=== PATIENT | female | born 1955 | race Caucasian/White ===

== ENCOUNTER 2017-12-07 00:57 | Outpatient (CLI) | payer OTHER, SELFPAY ==
[2017-12-07 08:46] LABS: Glucose 116 mg/dL (70-100)
== END 2017-12-07 01:17 ==
PROVIDERS: PCP Student in an Organized Health Care Education/Training Program; Visit Provider Student in an Organized Health Care Education/Training Program
DX: R73.09 Other abnormal glucose (principal); R79.89 Other specified abnormal findings of blood chemistry
CPT/HCPCS: 36415; 82947; 84443

== ENCOUNTER 2018-07-19 02:04 | Outpatient (CLI) | payer OTHER, SELFPAY ==
[2018-07-19 07:53] LABS: HCT 44.7 % (36.0-46.0); HGB 15.1 g/dL (12.0-15.5); Mean Corp. HGB Concentration 33.8 g/dL (32.0-36.0); Mean Corpuscular Hemoglobin 29.5 pg (27.0-33.0); Mean Corpuscular Volume 87.5 fL (80-95); Mean Platelet Volume 10.1 fL (8.0-11.0); Platelet Count 319 x1000/uL (130-400); RBC 5.11 m/cumm (4.00-5.20); RBC Distribution Width 13.2 % (11.7-14.6)
[2018-07-19 08:38] LABS: Anion Gap 7.5 mmol/L (3-11); BUN 17 mg/dL (7-18); CO2 29.5 mmol/L (21.0-32.0); CREATININE 0.85 mg/dL (0.55-1.02); Calcium 9.3 mg/dL (8.5-10.1); Chloride 105 mmol/L (98-107); Cholesterol 186 mg/dL (50-200); Glucose 115 mg/dL (70-100); HDL Cholesterol 48 mg/dL (40-60); LDL CHOLESTEROL 113 mg/dL (<100); Potassium 3.9 mmol/L (3.5-5.1); Sodium 142 mmol/L (136-145); TSH (W/Ref FT4) 2.93 uIU/mL (0.358-3.74); Triglyceride 154 mg/dL (30-150)
== END 2018-07-19 02:24 ==
PROVIDERS: PCP Student in an Organized Health Care Education/Training Program; Visit Provider Student in an Organized Health Care Education/Training Program
DX: I10 Essential (primary) hypertension (principal); R73.09 Other abnormal glucose; Z13.220 Encounter for screening for lipoid disorders; E55.9 Vitamin D deficiency, unspecified; Z86.2 Personal history of diseases of the blood and blood-forming organs and certain disorders involving the immune mechanism; E03.9 Hypothyroidism, unspecified
CPT/HCPCS: 36415; 80048; 80061; 82306; 83721; 85027; 84443

== ENCOUNTER 2019-04-01 01:34 | Outpatient (CLI) | payer OTHER, SELFPAY ==
--- NOTE | 2019-04-01 07:28 | DI.MAMMO_ITS ---
EXAM: MG MAMMO SCREENING CLINICAL HISTORY: screening,z12.39. TECHNIQUE: Bilateral full field digital CC and MLO mammographic images were obtained with 3D tomosyn thesis and utilizing computer aided detection (CAD). COMPARISON: Available for comparison. FINDINGS: Masses/Architectural Distortion: None seen. Microcalcifications: No suspicious pleomorphic-type are seen. Skin Thickening/Nipple Retraction: None. IMPRESSION: 1. No significant interval change with no specific features of malignancy noted. 2. Unless there is more urgent need, screening mammography is recommended, as per [employer] guidelines. ACR BI-RAD Category- 1 Negative Breast Density - Category B - Scattered areas of fibroglandular density A negative radiographic report should not delay biopsy if a dominant or clinically suspicious mass is present. Up to ten percent of cancers are not identified on mammography. A negative report may reinforce clinical impression. Adenosis and dense breasts may obscure an underlying neoplasm. False positive reports average 6 to 10%. Patient will receive a letter notifying them of these results.
== END 2019-04-01 01:54 ==
PROVIDERS: PCP Student in an Organized Health Care Education/Training Program; Visit Provider Student in an Organized Health Care Education/Training Program
DX: Z12.31 Encounter for screening mammogram for malignant neoplasm of breast (principal)
CPT/HCPCS: 77063; 77067

== ENCOUNTER 2020-03-25 02:53 | Outpatient (CLI) | payer BC, SELFPAY ==
[2020-03-25 09:19] LABS: Anion Gap 8.6 mmol/L (3-11); BUN 17 mg/dL (7-18); CO2 27.4 mmol/L (21.0-32.0); CREATININE 0.85 mg/dL (0.55-1.02); Calculated LDL 135 mg/dL (<100); Chloride 105 mmol/L (98-107); Cholesterol 216 mg/dL (<200); Glucose 116 mg/dL (74-106); HDL Cholesterol 51 mg/dL (40-60); Potassium 4.2 mmol/L (3.5-5.1); Sodium 141 mmol/L (136-145); TSH (W/Ref FT4) 2.52 uIU/mL (0.36-3.74); Triglyceride 151 mg/dL (<150)
== END 2020-03-25 03:13 ==
PROVIDERS: PCP Student in an Organized Health Care Education/Training Program; Visit Provider Student in an Organized Health Care Education/Training Program
DX: I10 Essential (primary) hypertension (principal); E03.9 Hypothyroidism, unspecified; E88.81 Metabolic syndrome and other insulin resistance; R73.09 Other abnormal glucose; Z13.220 Encounter for screening for lipoid disorders
CPT/HCPCS: 36415; 80048; 80061; 84443

== ENCOUNTER 2021-08-25 02:13 | Outpatient (CLI) | payer BC, SELFPAY ==
[2021-08-25 09:32] LABS: Anion Gap 9.4 mmol/L (3-11); BUN 16 mg/dL (7-18); CO2 26.6 mmol/L (21.0-32.0); CREATININE 0.9 mg/dL (0.55-1.02); Calcium 8.9 mg/dL (8.5-10.1); Chloride 104 mmol/L (98-107); Glucose 112 mg/dL (74-106); Potassium 3.6 mmol/L (3.5-5.1); Sodium 140 mmol/L (136-145); TSH (W/Ref FT4) 3.11 uIU/mL (0.36-3.74)
== END 2021-08-25 02:14 | disposition home or self-care (01) ==
LOC: LBO 02:14
PROVIDERS: PCP Student in an Organized Health Care Education/Training Program; Visit Provider Student in an Organized Health Care Education/Training Program
DX: E88.81 Metabolic syndrome and other insulin resistance (principal); I10 Essential (primary) hypertension; R73.09 Other abnormal glucose; E03.9 Hypothyroidism, unspecified
CPT/HCPCS: 36415; 80048; 84443

== ENCOUNTER → 2021-10-24 03:03 | Outpatient (CLI) | payer BC, SELFPAY ==
--- NOTE | 2021-10-24 07:15 | DI.MAMMO_ITS ---
Exam(s) MAMMO SCREENING EXAM: MAMMO SCREENING CLINICAL HISTORY: screening,Z12.39. TECHNIQUE: Bilateral full field digital CC and MLO mammographic images were obtained with 3D tomosyn thesis and utilizing computer aided detection (CAD). COMPARISON: Prior mammograms were reviewed, the most recent being March 2019. FINDINGS: Asymmetric density medially in left breast on CC views unchanged from prior studies. Asymmetric density lateral of center in the left breast on the CC view is also unchanged. No new spiculated masses in either breast. In the right breast there are increasing secretory-type microcalcifications, more so than 2019 There is no significant architectural distortion nor skin thickening-retraction. IMPRESSION: No radiographic evidence of malignancy in left breast. Increasing presently benign-appearing calcifications in the right breast. Recommend follow-up right breast mammogram in 6 months. BI-RADS Category 3 - 6 month - Probably Benign Finding: Recommend follow-up mammography in 6 months Breast Density - Category B - Scattered areas of fibroglandular density Breast density Category C or D implies that the patient has dense breast tissue. Dense breast tissue can make it harder to find cancer on a mammogram. Dense breast tissue is also associated with an incr eased risk of breast cancer. This information about the result of the mammogram report was provided to the patient to raise their awareness. Use this report when you speak with the patient about their risks for breast cancer, which includes their family history. At that time, you may recommend additional screening tests (Ultrasoun d or MRI) as these tests may add significant information. A negative radiographic report should not delay biopsy if a dominant or clinically suspicious mass is present. Up to ten percent of cancers are not identified on mammography. A negative report may reinforce clinical impression. Adenosis and dense breasts may obscure an underlying neoplasm. False positive reports average 6 to 10%. Patient will receive a letter notifying them of these results.
== END ==
PROVIDERS: PCP Student in an Organized Health Care Education/Training Program; Visit Provider Student in an Organized Health Care Education/Training Program
DX: Z12.31 Encounter for screening mammogram for malignant neoplasm of breast (principal); N60.82 Other benign mammary dysplasias of left breast; R92.1 Mammographic calcification found on diagnostic imaging of breast
CPT/HCPCS: 77063; 77067

== ENCOUNTER 2023-05-04 07:14 | Day surgery (SDC) | payer BC, SELFPAY ==
--- NOTE | 2023-05-03 14:36 | PDOC.DSDIS_ITS ---
Date of service: 05/04/23 Time of Service: 08:59 Discharge Plan Disposition Patient Disposition: Home Condition: Good Discharge Details Reason For Visit: colon scope Attending Provider: Kirsten Nunez Primary Care Provider: Betty Diana Home Meds and New Rx's Prescriptions: Continued magnesium 250 mg tablet 500 mg PO DAILY aspirin [Adult Aspirin Regimen] 81 mg tablet,delayed release (DR/EC) 81 mg PO DAILY PRN Patient Comments: 04/04/22-reports she sometimes takes this cholecalciferol (vitamin D3) [Vitamin D3] 1,000 UNIT capsule 1,000 unit PO DAILY Qty: 100 6RF Rx Instructions: Vitamin D supplement levothyroxine 50 mcg capsule 50 mcg PO DAILY Qty: 90 3RF irbesartan [Avapro] 300 mg tablet 300 mg PO DAILY Qty: 90 3RF Rx Instructions: to control BP <140/85 hydrochlorothiazide 12.5 mg tablet 12.5 mg PO DAILY Qty: 90 3RF Rx Instructions: to control Blood Pressure under 140/90 Discontinued bisacodyl [Dulcolax (bisacodyl)] 5 mg tablet,delayed release (DR/EC) 5 mg PO ONCE Qty: 4 0RF Rx Instructions: Take per colonoscopy instructions provided by ordering providers office polyethylene glycol 3350 17 gram/dose powder 17 g PO ONCE Qty: 238 0RF Rx Instructions: Take per colonoscopy instructions provided by ordering providers office Discharge Instructions Additional Instructions: DSU Colonoscopy Post- Op Instructions Instructions for Everyone who is given Anesthesia: For your safety, please do the following for the next twenty-four (24) hours: *Do Not operate a motor vehicle (car, truck, motorcycle, etc.) *Do Not drink alcoholic beverages or use any recreational drugs for the first 24 hours or while taking pain medications. The medications in your body may have a reaction that can be dangerous. *Do Not make any important decisions or sign any important papers. Findings: Extensive diverticula. Make sure you are moving your bowels on a regular basis and not straining to go to the bathroom. If you find you are having problems with constipation or straining, then it is recommended you start a fiber product such as Metamucil. ASA-resume in a.m. Follow up: Repeat in 10 years time 1. No lifting over 20 pounds or strenuous activity for the first 24 hours after your procedure. After 24 hours there are no restrictions on your activity but you may feel fatigued for a few days. 2. After you arrive home you may have a light meal and return to your normal diet as you can tolerate it without feeling sick to your stomach. 3. You may have a bloated, gaseous feeling in your belly (abdomen) after a colonoscopy. Passing gas and belching will help. Walking or lying down on your left side with your knees flexed may relieve the discomfort. Call the office at [phone] (Office) or [phone] (Hospital) right away if you notice any of the following: a.Vomiting of blood or ?coffee ground stools?. b.Rectal bleeding 1Tbsp, blood clots or continuous bleeding. c.Severe belly (abdominal) pain. d.A hard distended belly (abdomen) and an inability to pass gas. 4. Please don?t expect to have a normal BM (bowel movement) for 2-3 days after your procedure. 5. If there are questions regarding the findings of your procedure, please contact your doctor 6. If you are unable to contact your doctor with a problem, contact the hospital at [phone]. 7. Continue all your regular medications unless directed otherwise. I understand the above instructions and have no questions. Signature of Patient or Adult Escort Name of Responsible Adult Escort Signature of Nurse Date/Time Activity:: see above Diet:: see above Discharge Orders Discharge Orders: Discharge Order (Routine); Ordered 05/04/23 Ordered By: Kirsten Nunez DS: Diagnosis Discharge Diagnosis (1) Obesity (BMI 30-39.9): Status: Chronic (2) Essential hypertension: Status: Acute (3) Abnormal blood sugar: Status: Chronic (4) Metabolic syndrome X: Status: Acute (5) Hypothyroid: Status: Chronic (6) At risk for osteoporosis: Status: Acute (7) Sleep disturbance: Status: Chronic (8) Screening for malignant neoplasm of colon performed: Status: Acute Asessment and Plan: The patient is seen and examined after their colonoscopy.? The patient has been able to pass gas.? They are not having abdominal pain.? They have been able to tolerate liquids and a snack.? They do not have any nausea or vomiting.? They are not having any chest pain or shortness of breath.??? They are not having any rectal bleeding. Their vital signs have been stable-see nursing notes. We discussed findings during their colonoscopy, and any biopsies that were done/polyps that were removed. The patient will be sent a letter with any biopsy results, and when to repeat the colonoscopy.-see discharge instructions. Patient was given explicit instructions to follow-up regarding colonoscopy-refer to discharge instructions.? We reviewed resumption of medications. Patient verbalized understanding and discharged in stable and satisfactory condition- See nursing notes. (9) Diverticula of colon: Status: Acute
--- NOTE | 2023-05-03 14:39 | COLE_ITS ---
Date of service: 05/04/23 Time of Service: 08:56 Colonoscopy Report Date of procedure: 05/04/23 Pre-op diagnosis general: CRC screening Post-op diagnosis procedure note: other (Internal and external hemorrhoids. Diverticular disease.) Surgeon: Kirsten Nunez Anesthesia Type: General:No Airway Estimated blood loss (mL): 0 Pathology: none sent Complications: None Disposition: same day Prep: Miralax/Dulcolax Retraction Time: 8 Procedure Description: After informed consent was obtained the patient was taken to the procedure room and placed in a left decubitous position. Monitors were applied and a time out was done. The patients name, date of , procedure, allergies to medications and metal in their body was reviewed. The patient was then sedated. Once sedated and comfortable a rectal exam was done. External exam shows old external hemorrhoids and hemorrhoidal tags. It looks like she may have even had a perirectal abscess at 1 point. internal exam revealed a normal sphincter tone and no palpable masses. The scope was then introduced and retrofelexed. Grade 1 internal hemorrhoids in all 3 columns were identified. The scope was then advanced to the cecum without difficulty. The TI and appendiceal orifice were identified. The scope was then slowly retracted over 8 minutes back into the rectum. There are no polyps or AVMs visualized today. She does have an extensive diverticular disease that is confined to the sigmoid colon. There are no signs of active bleeding or infection. She does have numerous [place] diverticula. The scope was removed and the patient was woken up and taken back to Same day surgery in stable condition. The patient tolerated the procedure well and there were no immediate complications. Follow up: The patient should follow up in 10 years unless they develop changes in bowel habits or other new gastrointestinal complaints. Jeremiah Bowel Prep Jeremiah Bowel Prep Right Colon: 3 Left Colon: 3 Transverse Colon: 3 Total Score: 9
[2023-05-04 07:30] VITALS: BP 130/84; PULSE 87; RESP 20; TEMP 36.7; O2SAT 98
[2023-05-04] MEDS: Lactated Ringers 1,000 ML 80 ML IV (07:56)
--- NOTE | 2023-05-04 08:09 | W.ANESPRE ---
General Info Date of Service Date Performed: 05/04/23 Height: 5 ft 5 in Weight: 96.4 kg Body Mass Index (BMI): 35.4 Surgical Procedure: Operation Date: 05/04/23 08:20 Proposed Procedure Side Surgeon oh Nunez, Meds Allergies and Home Medications Allergies Allergy/AdvReac Type Severity Reaction Status Date / Time erythromycin base AdvReac nausea Verified 05/04/23 07:42 oxycodone HCl [From Percocet] AdvReac nausea Verified 05/04/23 07:42 Home Medication Medication Instructions Recorded cholecalciferol (vitamin D3) 25 1,000 unit PO DAILY #100 tab-caps 08/23/17 mcg (1,000 unit) capsule (Vitamin D3) magnesium 250 mg tablet 500 mg PO DAILY 02/01/18 aspirin 81 mg tablet,delayed 81 mg PO DAILY PRN 04/04/22 release (Adult Aspirin Regimen) levothyroxine 50 mcg capsule 50 mcg PO DAILY #90 tab-caps 08/14/22 hydrochlorothiazide 12.5 mg tablet 12.5 mg PO DAILY #90 tab-caps 08/19/22 irbesartan 300 mg tablet (Avapro) 300 mg PO DAILY #90 tab-caps 08/19/22 Current Visit Medications: Current Medications Generic Name Dose Route Start Last Admin Trade Name Freq PRN Reason Stop Dose Admin Hyoscyamine Sulfate 0.125 mg 05/04/23 02:34 Hyoscyamine 0.125 Mg Sl/Oral/Chew SL 06/03/23 02:33 DIRECTED PRN Ringer's Solution 1,000 mls @ 80 mls/hr 05/04/23 06:00 05/04/23 07:56 IV 05/04/23 23:59 80 mls/hr INFUSION SHANTA Administration IV Miscellaneous Supplies 1 each 05/04/23 06:00 Iv Access IV 05/04/23 23:59 DIRECTED SHANTA Ondansetron HCl 4 mg 05/04/23 02:34 Ondansetron 4 Mg/2 Ml Vial IVP 06/03/23 02:33 Q4H PRN PRN Nausea / Vomiting Sodium Chloride 0 ml 05/04/23 06:00 Normal Saline Flush 10 Ml Syr IV 05/04/23 23:59 PRN PRN Sodium Chloride 0 ml 05/04/23 06:00 Normal Saline 10 Ml Vial IJ 05/04/23 23:59 DIRECTED PRN Sterile Water 0 ml 05/04/23 06:00 Water,Injection,Sterile 10 Ml Vial IJ 05/04/23 23:59 DIRECTED PRN PFSH Active Problems Active Problems: Problem Status Onset Code Screening for malignant neoplasm of colon performed Z12.11 Screening declined by patient Z53.20 Localized swelling of right foot R22.41 At risk for osteoporosis Z91.89 Post-menopausal Z78.0 Hypothyroid E03.9 Sleep disturbance 04/16/15 G47.9 Obesity (BMI 30-39.9) 08/29/13 E66.9 Metabolic syndrome X 03/19/07 E88.81 Lichen sclerosus et atrophicus 12/25/11 L90.0 Essential hypertension 12/17/98 I10 Abnormal blood sugar R73.09 Medical History Medical History Breast pain (06/14/12) Shingles outbreak Resolved .. T5 dermatome. Shingles Vacc July 2018 [ ] Surgical History Surgical History Colonoscopy - IV Sedation (08/22/12) Total replacement of hip (~2008) Oksana Tobacco Smoking/Tobacco Use Status: Never Passive smoking exposure: No Alcohol Alcohol Intake: current Alcohol intake frequency: holidays/special occasions only Alcohol type: wine Substance Use Substance use: Never Substance use type: does not use Vital Signs and Lab Results Vital Signs Most Recent Vital Signs in EMR: Most Recent Vital Signs Temp Pulse Resp BP Pulse Ox 36.7 C 87 20 130/84 98 05/04/23 07:30 05/04/23 07:30 05/04/23 07:30 05/04/23 07:30 05/04/23 07:30 Lab Results Blood Type / Crossmatch: No Data to Display Complete Blood Count: No Data to Display Complete Metabolic Panel: No Data to Display Liver Function Panel: No Data to Display Coagulation Panel: No Data to Display Cardiac Panel: No Data to Display Arterial Blood Gas: No Data to Display Venous Blood Gas: No Data to Display Pancreas Panel: No Data to Display Thyroid Panel: No Data to Display Infectious Disease: No Data to Display Blood Cultures: No Data to Display Toxicology Panel: No Data to Display Anesthesia Assessment and Plan Anesthesia History Personal History: No History of Anesthesia Complications Family History: No Family History of Anesthesia Complications Exercise Tolerance Exercise Tolerance: Metabolic Equivalents>4 Pertinent Negatives Pertinent Negatives: No Symptoms of GERD and No Major Cardiovascular Symptoms or Complaints Cardiac & Pulmonary Exam Cardiac Exam: Normal S1/S2 Heart Sounds Pulmonary Exam: Clear Bilateral Breath Sounds Implantable Cardiac Device Does patient have a Pacemaker or an ICD?: No Airway Exam Known Difficult Airway: No Mallampati Class: 1 Mouth Opening: Normal (> 3cm) Thyromental Distance: Less than 3 cm Neck Range of Motion: Full ROM Neck Circumference: Normal Teeth Condition: Normal Dentition ASA Classification ASA Score: ASA 2 Emergency Case?: No NPO Status NPO Status: NPO Clears >2 hours, Solids >8 hours Anesthesia Plan Resuscitation Status: Full Code Anesthesia Technique: General Anesthesia Airway Planned: Natural Airway Monitors Used: Standard Monitors
[2023-05-04 08:12] VITALS: BMI 35.4
[2023-05-04 08:45] VITALS: BP 107/75; PULSE 72; RESP 16; TEMP 35.8; O2SAT 98
[2023-05-04 09:14] VITALS: BP 141/79; PULSE 63; RESP 16; TEMP 35.8; O2SAT 99
--- NOTE | 2023-05-04 09:34 | W.ANESPOSTOP ---
Postoperative Evaluation Date, Time and Location Date Performed: 05/04/23 Time Performed: 08:46 Patient Location: Day Surgery Unit Vital Signs Most Recent Imported Vital Signs: Most Recent Vital Signs Temp Pulse Resp BP Pulse Ox 35.8 C L 63 16 141/79 H 99 05/04/23 09:14 05/04/23 09:14 05/04/23 09:14 05/04/23 09:14 05/04/23 09:14 Assessment Mental Status: Awake (Alert & Oriented to Patient Baseline) Airway and Respiratory Function: Patent airway with normal (patient baseline) respiratory exam Cardiovascular Function: Hemodynamically Stable Hydration Status: Adequately Hydrated Nausea & Vomiting: No Nausea or Vomiting Pain: Pt. Denies Any Pain Peripheral Nerve Block: Patient did not receive a nerve block
== END 2023-05-04 09:30 | disposition home or self-care (01) ==
LOC: SUR 07:14
PROVIDERS: PCP Student in an Organized Health Care Education/Training Program; Visit Provider Surgery
PROC: 0DJD8ZZ Inspection of Lower Intestinal Tract, Via Natural or Artificial Opening Endoscopic (ICD-10-PCS; CPT 45378; principal; 2023-05-04 08:15)
DX: Z12.11 Encounter for screening for malignant neoplasm of colon (principal); K64.4 Residual hemorrhoidal skin tags; K57.30 Diverticulosis of large intestine without perforation or abscess without bleeding; K64.0 First degree hemorrhoids
CPT/HCPCS: 45378; J2704

== ENCOUNTER 2024-01-30 02:15 | Outpatient (CLI) | payer BC, SELFPAY ==
[2024-01-30 08:35] LABS: HGB 14.7 g/dL (11.2-15.7)
[2024-01-30 09:05] LABS: Anion Gap 8.6 mmol/L (3-11); BUN 14 mg/dL (7-18); CO2 27.4 mmol/L (21.0-32.0); Calcium 9.5 mg/dL (8.5-10.1); Calculated LDL 98 mg/dL (<100); Chloride 107 mmol/L (98-107); Cholesterol 183 mg/dL (<200); Estimated GFR 61.36 (mL/min/1.73m2); Glucose 113 mg/dL (74-106); HDL Cholesterol 48 mg/dL (40-60); Magnesium 1.9 mg/dL (1.8-2.4); Potassium 3.6 mmol/L (3.5-5.1); Sodium 143 mmol/L (136-145); TSH 1.87 uIU/mL (0.36-3.74); Triglyceride 185 mg/dL (<150)
== END 2024-01-30 02:16 | disposition home or self-care (01) ==
LOC: LBO 02:15
PROVIDERS: Absent Provider Student in an Organized Health Care Education/Training Program; PCP Student in an Organized Health Care Education/Training Program; Referring Provider Student in an Organized Health Care Education/Training Program; Visit Provider Student in an Organized Health Care Education/Training Program
DX: Z13.220 Encounter for screening for lipoid disorders (principal); R73.09 Other abnormal glucose; I10 Essential (primary) hypertension; E03.9 Hypothyroidism, unspecified; G47.9 Sleep disorder, unspecified; Z86.2 Personal history of diseases of the blood and blood-forming organs and certain disorders involving the immune mechanism; K57.30 Diverticulosis of large intestine without perforation or abscess without bleeding; Z91.89 Other specified personal risk factors, not elsewhere classified
CPT/HCPCS: 36415; 80048; 80061; 83735; 84443; 85018

== ENCOUNTER 2024-02-19 01:17 | Outpatient (CLI) | payer BC, SELFPAY ==
--- NOTE | 2024-02-19 07:56 | DI.MAMMO_ITS ---
Exam(s) MAMMO SCREENING EXAM: MAMMO SCREENING CLINICAL HISTORY: screening,z12.39 TECHNIQUE: Mammograms were interpreted according to the usual protocol including computer analysis w [employer] CAD system, tomosynthesis and C-view imaging. COMPARISON: 2015 through 2021 FINDINGS: The breasts are composed of scattered fibroglandular densities, Breast Density category B. No suspicious masses or suspicious microcalcifications are seen. No skin thickening or abnormal axillary lymph nodes are seen. There has been no significant change from prior exams. IMPRESSION: BI-RADS Category 1, Negative mammogram Yearly screening mammography is recommended. Breast Density - Category B, scattered fibroglandular densities. A negative radiographic report should not delay biopsy if a dominant or clinically suspicious mass is present. Up to ten percent of cancers are not identified on mammography. A negative report may reinforce clinical impression. Adenosis and dense breasts may obscure an underlying neoplasm. False positive reports average 6 to 10%. Patient will receive a letter notifying them of these results.
== END 2024-02-19 01:37 ==
LOC: DI 01:18
PROVIDERS: PCP Student in an Organized Health Care Education/Training Program; Visit Provider Student in an Organized Health Care Education/Training Program
DX: Z12.31 Encounter for screening mammogram for malignant neoplasm of breast (principal); R92.323 Mammographic fibroglandular density, bilateral breasts
CPT/HCPCS: 77063; 77067

== ENCOUNTER 2024-02-27 14:58 | Emergency (ER) | payer BC, SELFPAY ==
[2024-02-27] VITALS (17 sets, daily range): BP systolic 136–163; BP diastolic 51–93; PULSE 88–118; RESP 12–32; TEMP 36.8; O2SAT 93–99
--- NOTE | 2024-02-27 15:00 | RT.EKG_ITS ---
APPROVED REPORT Exam: Resting ECG Reason for Exam: chest tightness Patient Location: E HR:112 bpm ECG Measurements Heart Rate 112 AXIS RI 169 P 29 QRSd 84 QRS -42 QT 341 T 12 QTc 466 Conclusion Sinus tachycardia...rate> 99 Left axis deviation...QRS axis (-30,-90) Consider anterior infarct...Q >30mS in V2-V5
--- NOTE | 2024-02-27 15:08 | ED.GENADUL_ITS ---
Discharge Plan Disposition Patient Disposition: Home Condition: Stable Discharge Details Clinical Impression: Abdominal pain, Chest pain, N&V (nausea and vomiting) Primary Care Provider: Betty Diana ED Provider: Ruel Brandon Home Meds and New Rx's Prescriptions: New ondansetron 4 mg tablet,disintegrating 4 mg PO Q8H PRN (Reason: nausea and vomiting) Qty: 30 0RF amoxicillin-pot clavulanate 875-125 mg tablet 1 tab PO BID Qty: 14 0RF Continued magnesium 250 mg tablet 500 mg PO DAILY aspirin [Adult Aspirin Regimen] 81 mg tablet,delayed release (DR/EC) 81 mg PO DAILY PRN Patient Comments: 04/04/22-reports she sometimes takes this cholecalciferol (vitamin D3) [Vitamin D3] 1,000 UNIT capsule 1,000 unit PO DAILY Qty: 100 6RF Rx Instructions: Vitamin D supplement levothyroxine 50 mcg capsule 50 mcg PO DAILY Qty: 90 3RF irbesartan 300 mg tablet See Rx Instructions .ROUTE .COMPLEX Qty: 90 3RF Dose Instruction: TAKE ONE TABLET BY MOUTH EVERY DAY TO CONTROL FOR BLOOD PRESSURE LESS THAN 140/85 Rx Instructions: TAKE ONE TABLET BY MOUTH EVERY DAY TO CONTROL FOR BLOOD PRESSURE LESS THAN 140/85 hydrochlorothiazide 12.5 mg tablet See Rx Instructions .ROUTE .COMPLEX Qty: 90 3RF Dose Instruction: TAKE ONE TABLET BY MOUTH EVERY DAY TO CONTROL BLOOD PRESSURE UNDER 140/90 Rx Instructions: TAKE ONE TABLET BY MOUTH EVERY DAY TO CONTROL BLOOD PRESSURE UNDER 140/90 Discharge Instructions Additional Instructions: Your heart enzymes and imaging showed no significant concerning findings. You do have signs of inflammation of your colon Take the antibiotic as prescribed. You may develop diarrhea, this usually resolves after a few days. If you are not improving within a week follow-up with your primary care provider If you feel more ill, have severe worsening pain or persistent vomiting despite the nausea medicine return to the emergency department for reevaluation HPI General Mode of arrival: ambulatory . Date/Time Provider Initiated Documentation: 02/27/24 14:59 . Limitations to Documentation: no limitations . Information obtained by: patient . History of Present Illness 69 year old F presents to the emergency department with the chief complaint of chest burning sensation, n/v, described as moderate, Quality is described as burning, and is localized to the chest and abdomen. Patient reports no radiation. Patient started experiencing this day(s) (1) and it has been constant. No relieving factors improve symptom(s), No exacerbating factors reported . Patient notes chest pain; denies shortness of breath. Patient did receive the following treatments prior to arrival, none Related Data Home Medications ?Medication ?Instructions ?Recorded ?Confirmed cholecalciferol (vitamin D3) 25 1,000 unit PO DAILY #100 tab-caps 08/23/17 02/27/24 mcg (1,000 unit) capsule (Vitamin D3) magnesium 250 mg tablet 500 mg PO DAILY 02/01/18 02/27/24 aspirin 81 mg tablet,delayed 81 mg PO DAILY PRN 04/04/22 02/27/24 release (Adult Aspirin Regimen) levothyroxine 50 mcg capsule 50 mcg PO DAILY #90 tab-caps 08/10/23 02/27/24 hydrochlorothiazide 12.5 mg tablet See Rx Instructions .Route 08/29/23 02/27/24 .COMPLEX #90 tabs irbesartan 300 mg tablet See Rx Instructions .Route 08/29/23 02/27/24 .COMPLEX #90 tabs amoxicillin 875 mg-potassium 1 tab PO BID #14 tabs 02/27/24 clavulanate 125 mg tablet ondansetron 4 mg disintegrating 4 mg PO Q8H PRN nausea and 02/27/24 tablet vomiting #30 tabs Previous Rx's ?Medication ?Instructions ?Recorded cholecalciferol (vitamin D3) 25 1,000 unit PO DAILY #100 tab-caps 08/23/17 mcg (1,000 unit) capsule (Vitamin D3) levothyroxine 50 mcg capsule 50 mcg PO DAILY #90 tab-caps 08/10/23 hydrochlorothiazide 12.5 mg tablet See Rx Instructions .Route 08/29/23 .COMPLEX #90 tabs irbesartan 300 mg tablet See Rx Instructions .Route 08/29/23 .COMPLEX #90 tabs amoxicillin 875 mg-potassium 1 tab PO BID #14 tabs 02/27/24 clavulanate 125 mg tablet ondansetron 4 mg disintegrating 4 mg PO Q8H PRN nausea and 02/27/24 tablet vomiting #30 tabs Allergies Allergy/AdvReac Type Severity Reaction Status Date / Time erythromycin base AdvReac nausea Verified 02/27/24 15:08 oxycodone HCl (From Percocet) AdvReac nausea Verified 02/27/24 15:08 General Stated Complaint: Abd Prob ANNELISE: 3 Review of Systems All systems reviewed & are unremarkable except as noted in HPI and below Constitutional Constitutional: Denies chills, Denies fever(s) and Denies weakness Cardiovascular Cardiovascular: Reports chest pain (burning) and Denies dyspnea Respiratory Respiratory: Denies cough and Denies dyspnea Gastrointestinal Gastrointestinal: Reports abdominal pain, Reports nausea and Reports vomiting Integumentary/Breasts Skin/Breast: Denies rash Neurologic Neurologic: Denies weakness Exam Const General: no acute distress Orientation: alert HENMD Head: normal to inspection Ears: external ears normal General nose exam: external nose normal Mouth: moist mucous membranes Eyes General: appearance normal, both eyes and all related structures Neck Neck: normal visual inspection Resp Effort & Inspection: normal respiratory effort and able to speak in complete sentences Auscultation: clear to auscultation bilaterally Cardio Jugular venous pressure: no JVD Rate: regular rate GI Palpation: soft, not firm, no guarding and tender Skin General skin exam: no rashes or lesions noted Neuro General: patient alert and patient oriented x3 Extrem General: normal to inspection Psych Mental Status: mental status grossly normal Course Vital Signs Vital signs: Vital Signs Pulse 118 H 02/27/24 15:02 Respiratory Rate 32 H 02/27/24 15:02 Blood Pressure 163/93 H 02/27/24 15:02 Pulse Oximetry 98 02/27/24 15:02 Pulse 118 H 02/27/24 15:02 Respiratory Rate 32 H 02/27/24 15:02 Blood Pressure 163/93 H 02/27/24 15:02 Pulse Oximetry 98 02/27/24 15:02 Pain Level 5 02/27/24 15:02 Medical Decision Making 69-year-old female with a history of hypertension, had hypo thyroidism, who comes in with 1 day of nausea vomiting and burning in the chest sensation. She also notes that she has issues with constipation that was improved with docusate but then today had 1 bowel movement with small amount of blood in it. She has had some upper abdominal discomfort but not severe pain. She denies any chest pressure. She is well-appearing on exam. She has clear lung sounds, no JVD, soft abdomen with tenderness in the right upper and left upper quadrant without guarding. Given her complaints will treat with Mylanta and Zofran and obtain troponins, CBC, CMP, lipase and given she is tachycardic with a chest burning sensation obtain CTA of the chest to evaluate for PE given the vomiting with constipation and upper abdominal discomfort we will also obtain CT abdomen pelvis. Patient's labs show white count of 18 otherwise no significant findings, delta troponin negative. CT shows no acute findings in the chest, does have findings of colitis versus enteritis and is near her diverticula that she has. She is stable and feeling much better. Abdomen is no longer tender, will treat as possible diverticulitis with Augmentin, she is stable for discharge, follow-up with her PCP, return precautions given Differential Diagnosis Differential Diagnosis: gastroenteritis, reflux, acs Imaging Data Radiologic Study: Attestation: I personally reviewed and interpreted this imaging study as follows: Imaging: CT Scan Radiologist's impression: IMPRESSION: No evidence of pulmonary emboli or other acute abnormality in the chest. Wall thickening and some stranding in the surrounding fat involving the splenic flexure and proximal descending colon, consistent with colitis. Diverticulosis of the lower descending and sigmoid colon without evidence of diverticulitis. Lab Data Lab results reviewed: Yes I reviewed the patient's lab results. ECG Data Attestation: I personally reviewed and interpreted this ECG (s) as follows: Prior ECG tracings: not available for review Interpretation: Sinus tachycardia, rate of 112, DC 169, no STEMI. Quality:SDOH Health Related Social Needs: No Data to Display PFSH All Active Problems (Updated 02/27/24 @ 16:47 by Ruel Brandon MD) N&V (nausea and vomiting) (Acute) Chest pain (Acute) Abdominal pain (Acute) Diverticula of colon (Acute) Screening for malignant neoplasm of colon performed (Acute) Screening declined by patient (Acute) Declined 2022 mammo orders --> ok, Mammo q 2 years Dexa declined, low risk .. per 09/2022 ov. Sorento overdue, but low risk and no polyps .. seeing spring 2023. ik Localized swelling of right foot (Acute) Mild; Pitting @ foot (no pitting @ ankle) .. possibly 2' hip replacement. At risk for osteoporosis (Acute) Kaitlin @ 55est; NonSmoker; No PPI; No Steroid use.. low risk Post-menopausal (Acute) Hypothyroid (Chronic) High in July 2017, Rx started, WNL 11/2017. Tolerating 01/2018. TSH WNL, 07/2018. Retest in Spring 2019 [ ] Sleep disturbance (Chronic 04/16/15) Falling asleep takes very long; Some awakening problems. Feels mostly rested, but wondering. Hx melatonin with mixed help Obesity (BMI 30-39.9) (Chronic 08/29/13) Metabolic syndrome X (Acute 03/19/07) 116 in 2007; impaired fbs 107 02/2013, CV risk !% calculated 2003; new guidelines CV risk 3.9% 08/2013 Lichen sclerosus et atrophicus (Acute 12/25/11) Essential hypertension (Acute 12/17/98) 1998; CV risk 3.9% 08/2013. Low BP today, 02/01/18 but asymptomatic, tolerating meds. CV risk @ 8% in re-calc 07/2018. Focus on blood glucose 2' elevated GLUC readings, but A1C @ 6 is WNL. Urged physical activity. Abnormal blood sugar (Chronic) elevated fasting sugar, monitoring [no known DM in family][bro may have started Rx]. A1C 6 07/2018, WNL but monitor. Medical History (Updated 02/27/24 @ 16:47 by Ruel Brandon MD) Breast pain (06/14/12) Shingles outbreak Resolved .. T5 dermatome. Shingles Vacc July 2018 [ ] Surgical History (Updated 05/08/23 @ 10:35 by Sara Ortiz) History of colonoscopy (~04/2023) Total replacement of hip (~2008) Oksana Colonoscopy - IV Sedation (08/22/12) Family History (Updated 10/05/22 @ 11:21 by Mica Adair RN) Sister Arthritis Brother Diabetes Social History Smoking/Tobacco Use Status: Never Smoking risk assessment performed?: Yes Alcohol Intake: current Alcohol Intake frequency: holidays/special occasions only Alcohol type: wine Drug use: Never Substance use type: does not use Adopted: No Caregiver/Support person: No Foster care: No Household members: spouse Housing: house Number of Children: 1 number of grandchildren: 0 Communication Needs: Corrective Lenses Education Level: college Details: Bachelor's Do you need help understanding health information?: Rarely current occupation: Retired - [employer] Pets and animals: Yes Pets and animals: dog(s) Sexually active: Yes Do you think of yourself as: straight/heterosexual Current gender identity: female What is your relationship status?: How often do you talk on the phone with friends or family?: three or more times per week How often do you get together with friends or relatives?: three or more times per week Do you belong to any clubs or organized social groups?: yes Panel score (0-1 are the most socially isolated patients): 3 What type of physical activity do you participate in: walking Duration: 15-30 minutes/day Frequency: daily Ami/Judaism: Zoroastrian Special ami needs: No Seatbelt use: always Helmet use: Yes Drive intox or ride w/intox dump truck driver: No Working smoke detector in home: Yes Fire extinguisher in home: Yes Carbon monox detector in home: Yes Do you feel safe at home: Yes Do you feel safe in your relationship?: Yes
--- NOTE | 2024-02-27 15:15 | DI.CT_ITS ---
Exam(s) CT CHEST PE ABD PELVIS W EXAM: CT CHEST PE ABD PELVIS W CLINICAL HISTORY: chest pain, tachycardia, n/v and upper abd pain. TECHNIQUE: Imaging Protocol: Axial computed tomography images with coronal and sagittal reformatted images were created and reviewed. Computer aided detection (CAD) was utilized. CONTRAST MATERIAL: Intravenous: Omnipaque 350 Contrast volume:100 ml Oral: no COMPARISON: CT HEAD WITHOUT CONTRAST from 12/17/2008 US ABDOMEN ULTRASOUND from 12/21/2008 FINDINGS: CHEST: Tracheobronchial tree: Patent. Pulmonary parenchyma: No consolidation or dominant measurable mass. Pleura: No effusion or pneumothorax. Mediastinum: Tiny hiatal hernia. Aorta: Thoracic portion non-dilated. No dissection. Pulmonary arteries: No visible emboli. Heart: Normal size. No pericardial effusion. Bones: Degenerative changes. No lytic or blastic lesions.No compression fractures. Soft tissues: Unremarkable. ABDOMEN and PELVIS: Liver: Normal density. No measurable mass. Gallbladder and biliary tract: No evidence of stones or wall thickening. No biliary dilatation. Pancreas: Normal density, no abnormal calcifications or inflammatory process. Spleen: Normal. Kidneys: Normal size, contour and axis. No radiodense stones. No obstructive uropathy. No suspicious masses seen. Adrenal glands: No masses seen. Aorta: Abdominal portion non-dilated. Lymph nodes: Within normal limits. Soft tissues: Unremarkable. Bladder: Unremarkable. Bowel: Diverticulum at fundus of stomach. No small-bowel obstruction. Appendix normal. Diverticulo sis of the lower descending and sigmoid. No evidence of diverticulitis. Wall thickening seen from t he splenic flexure through proximal descending colon, suspicious for colitis. Very little stool. Peritoneal cavity: No ascites. No focal collection. No mesenteric inflammatory response. No free ai r. Bones: Right hip prosthesis. Degenerative changes in the spine, greatest at L4-5. Reproductive organs: Within normal limits. IMPRESSION: No evidence of pulmonary emboli or other acute abnormality in the chest. Wall thickening and some stranding in the surrounding fat involving the splenic flexure and proximal descending colon, consistent with colitis. Diverticulosis of the lower descending and sigmoid colon without evidence of diverticulitis. Findings called to Dr. Magana of the emergency department. RADIATION DOSE DELIVERED: Total DLP DATA REPOSITORY: All CT scans at this facility are submitted to the National Radiology Data Registry (NRDR) Dose Index Registry (DIR) with the [employer] (ACR). RADIATION OPTIMIZATION: All CT scans at this facility use at least one of these dose optimization te chniques: automated exposure control; mA and/or kV adjustment per patient size (includes targeted exa ms where dose is matched to clinical indication); or iterative reconstruction.
[2024-02-27 15:19] LABS: Abs Immature Grans 0.07 10^3/uL (0.0-0.06); Absolute Basophil Count 0.04 10^3/uL (0.0-0.2); Absolute Lymphocyte Count 0.82 10^3/uL (1.2-3.4); Basophils % 0.2 %; HCT 45.2 % (36.0-46.0); HGB 15.5 g/dL (11.2-15.7); Immature Grans % 0.4 %; Lymphocytes % 4.5 %; MCH 29.7 pg (27.0-33.0); MCHC 34.3 % (32.0-36.0); MCV 87 fL (80-95); MPV 9.3 fL (8.0-11.0); Monocytes % 2.1 %; Neutrophils % 92.8 %; Platelet Count 346 10^3/uL (130-400); RBC 5.22 10^6/uL (3.93-5.22); RDW 12.5 % (11.7-14.6); RDW-SD 39.5 fL; WBC 18.25 10^3/uL (4.4-10.8)
[2024-02-27 15:20] LABS: Absolute Monocyte Count 0.38 10^3/uL (0.1-0.8); Absolute Neutrophil Count 16.94 10^3/uL (1.2-6.7)
[2024-02-27] MEDS: Mylanta Suspension 30 ML CUP PO (15:27)
[2024-02-27] MEDS: Ondansetron 4 MG/2 ML VIAL IVP (15:28)
[2024-02-27 15:37] LABS: ALT 19 U/L (14-59); AST 13 U/L (15-37); Albumin 3.7 g/dL (3.4-5.0); Alkaline Phosphatase 90 U/L (46-116); BUN 19 mg/dL (7-18); Bilirubin, Direct 0.3 mg/dL (0.0-0.2); Bilirubin, Total 1.74 mg/dL (0.2-1.0); Calcium 9.7 mg/dL (8.5-10.1); Chloride 104 mmol/L (98-107); Estimated GFR 60.98 (mL/min/1.73m2); Glucose 150 mg/dL (74-106); Magnesium 1.5 mg/dL (1.8-2.4); Potassium 3.2 mmol/L (3.5-5.1); Sodium 142 mmol/L (136-145); Total Protein 7.6 g/dL (6.4-8.2)
[2024-02-27 15:48] LABS: Procalcitonin < 0.10 ng/mL; TSH (W/Ref FT4) 0.78 uIU/mL (0.36-3.74); Troponin I 11 ng/L (<or=51)
[2024-02-27] MEDS: Omnipaque 350 MG/ML 100 ML BTL IJ (15:48)
[2024-02-27] MEDS: Normal Saline - Diluent 50 ML VIAL IJ (15:49)
[2024-02-27 16:16] LABS: COVID-19 PCR Negative (Negative); Influenza A PCR Negative (Negative); Influenza B PCR Negative (Negative); RSV PCR Negative (Negative)
[2024-02-27 16:22] LABS: Source Nasopharynx
[2024-02-27 16:23] LABS: Bilirubin Negative (Negative); Blood Small (Negative); Clarity Clear (Clear); Glucose Negative (Negative); Ketones Negative (Negative); Leukocyte Esterase Negative (Negative); Nitrite Negative (Negative)
[2024-02-27 16:33] LABS: Bacteria Negative HPF (Negative); C & S Indicated? No; Crystals Negative HPF (Negative); Epithelial Cells Few HPF (Negative); Mucus Negative (Negative); WBC Negative HPF (0-5)
[2024-02-27 16:35] LABS: Troponin I 10 ng/L (<or=51)
[2024-02-27] MEDS: Amoxicillin 875/Clav. 125 TAB PO (16:55)
== END 2024-02-27 17:05 | disposition home or self-care (01) ==
PROVIDERS: Emergency Provider Emergency Medicine; PCP Student in an Organized Health Care Education/Training Program
DX: R07.89 Other chest pain (principal); K21.9 Gastro-esophageal reflux disease without esophagitis; R00.0 Tachycardia, unspecified; I10 Essential (primary) hypertension; E03.9 Hypothyroidism, unspecified; Z79.82 Long term (current) use of aspirin
CPT/HCPCS: 36415; 71275; 74177; 80053; 84145; 87637; 93005; 96374; 99285; 81003; 81015; 82248; 83735; 84443; 84484; 85025; 93010; J2405; J3490

== ENCOUNTER 2024-10-01 02:08 | Outpatient (CLI) | payer OTHER, SELFPAY ==
--- NOTE | 2024-10-01 07:00 | DI.DEXA_ITS ---
Exam(s) XR DEXA BONE DENSITY W/WO BENJAMIN EXAM: XR DEXA BONE DENSITY W/WO BENJAMIN CLINICAL HISTORY: screening,menopausal and postmenopausal disorder,n95.9 TECHNIQUE: COMPARISON: No exams were available for comparison FINDINGS: Lateral Spine Image: Unremarkable. No compression deformities identified. Left hip: Total T-Score: 0.2 Total Z-Score: 1.7 T- and Z-scores: Within normal limits. Lumbar Spine: Total T-Score: 1.4 Total Z-Score: 3.5 T- and Z-scores: Within normal limits. Osteoporosis is seen in the left forearm where there is a T-score of -2.5 and a Z-score of -0.4. IMPRESSION: 1. No evidence of osteoporosis in the left hip or lumbar spine. 2. Osteoporosis is seen in the left forearm.
== END 2024-10-01 02:28 ==
LOC: DI 02:09
PROVIDERS: PCP Nurse Practitioner Family; Visit Provider Nurse Practitioner Family
DX: N95.9 Unspecified menopausal and perimenopausal disorder (principal)
CPT/HCPCS: 77080

== ENCOUNTER 2025-02-13 02:20 | Outpatient (CLI) | payer OTHER, SELFPAY ==
[2025-02-13 08:29] LABS: ALT 10 U/L (10-49); AST 12 U/L (<34); Albumin 4.0 g/dL (3.2-5.0); Alkaline Phosphatase 80 U/L (46-116); Anion Gap 9.8 mmol/L (3-11); BUN 15 mg/dL (9-23); Bilirubin, Total 1.40 mg/dL (0.2-1.2); CO2 28.2 mmol/L (20.0-31.0); Calcium 9.3 mg/dL (8.3-10.6); Chloride 105 mmol/L (98-107); Cholesterol 166 mg/dL (<200); Glucose 112 mg/dL (74-106); HDL Cholesterol 44 mg/dL (>40); Potassium 3.6 mmol/L (3.5-5.1); Sodium 143 mmol/L (136-145); TSH (W/Ref FT4) 1.37 uIU/mL (0.55-4.78); Total Protein 6.7 g/dL (5.7-8.2)
[2025-02-13 11:05] LABS: Lab Add On Test DONE
== END 2025-02-13 02:21 | disposition home or self-care (01) ==
LOC: LBO 02:21
PROVIDERS: PCP Nurse Practitioner Family; Referring Provider Nurse Practitioner Family; Visit Provider Nurse Practitioner Family
DX: Z00.00 Encounter for general adult medical examination without abnormal findings (principal); E03.9 Hypothyroidism, unspecified; I10 Essential (primary) hypertension; R73.09 Other abnormal glucose
CPT/HCPCS: 36415; 80053; 80061; 82947; 83036; 84443